=== PATIENT | female | born 1955 | race Caucasian/White ===

== ENCOUNTER 2017-12-13 07:30 | Day surgery (SDC) | payer BC ==
[2017-12-11 14:24] VITALS: BMI 28.1
[~2017-12-13 07:30] MED LIST: LIDOCAINE 1% 20 ML VIAL (10MG/ML) FOR IV START INTRADERMA PRN
[2017-12-13 07:53] VITALS: RESP 16; TEMP 98
[2017-12-13] MEDS: LACTATED RINGERS 1,000 ML IV SCH ×2 (07:57→09:37)
[2017-12-13] MEDS ORDERED: LIDOCAINE 1% 20 ML VIAL (10MG/ML) FOR IV START INTRADERMA ONE (07:58)
[2017-12-13] MEDS ORDERED: PROPOFOL 10 MG/ML 20 ML VIAL IV ONE (09:39)
--- NOTE | 2017-12-13 10:04 | P.PCN ---
Date of Procedure: 12/13/17 Procedure(s) Performed: Procedure: Esophagogastroduodenoscopy and biopsy. Preoperative diagnosis: Chronic reflux symptoms and globus sensation in her throat despite medical therapy. Postoperative diagnosis: 1. Small sliding hiatal hernia with no obvious esophagitis or complicated reflux disease. 2. Mild antral gastritis. 3. Multiple biopsies obtained from the duodenum, antrum and esophagus. Preparation and sedation: Was provided by anesthesia. Brief clinical history: The patient is a 61-year-old female who I scheduled for this evaluation for the above reasons. The purpose is to assess her esophagitis , rule out complicated reflux disease or other pathology. Procedure: With the patient on her left lateral decubitus position and after informed consent and adequate sedation, I passed the Olympus-GIF 160 video upper endoscope through the cricopharyngeus down the esophagus. GE junction was around 37 cm from the incisors and there was a small sliding hiatal hernia but no obvious esophagitis or complicated reflux disease. The endoscope was then passed into the stomach which was insufflated with air and inspected in detail including the retroflex view in the cardia. There was some mottling and erythema in the antrum but no ulcers or erosions. Pyloric channel, duodenal bulb, post bulbar area and descending duodenum appeared within normal limits. I obtained biopsies from the duodenum, antrum and esophagus then the endoscope was withdrawn. The patient tolerated the procedure well. Plan: The patient was reassured. Will await biopsy results. I will make further plans based on her course and biopsy results. I will see her in the office in around 4-6 weeks.
[2017-12-13 10:19] VITALS: BP 127/90; PULSE 60
== END 2017-12-13 10:39 | disposition home or self-care (01) ==
LOC: ORWHC2ENDO 07:30
DX: K21.9 Gastro-esophageal reflux disease without esophagitis (principal); K29.50 Unspecified chronic gastritis without bleeding; K44.9 Diaphragmatic hernia without obstruction or gangrene; Z79.82 Long term (current) use of aspirin
CPT/HCPCS: 88305; 43239; J2704

== ENCOUNTER → 2017-12-13 | Outpatient (CLI) | payer BC ==
--- NOTE | 2017-12-13 07:45 | US ---
EXAMINATION TYPE: US abdomen complete DATE OF EXAM: 12/13/2017 COMPARISON: NONE CLINICAL HISTORY: Epigastric Pain, R10.13. EXAM MEASUREMENTS: Liver Length: 12.7 cm Gallbladder Wall: 0.1 cm CBD: 0.3 cm Spleen: 8.8 cm Right Kidney: 9.9x3.9x4.5 cm Left Kidney: 9.3x4.1x4.3 cm Pancreas: Tail obscured by overlying bowel gas Liver: Diffusely heterogenous and coarsened echotexture. This limits evaluation for hepatic masses. Gallbladder: No cholelithiasis. No biliary sludge. Evidence for sonographic Willingham's sign: No CBD: wnl Spleen: wnl Right Kidney: wnl Left Kidney: wnl Upper IVC: wnl Abd Aorta: wnl The intrahepatic portion of the IVC and proximal abdominal aorta are within normal limits. There is no evidence of cholelithiasis. Common bile duct is unremarkable. The visualized portions of the huff creas are homogenous. The spleen is unremarkable. Kidneys are symmetric and free of hydronephrosis. No renal lesions are seen. IMPRESSION: 1. Diffusely heterogenous hepatic echotexture that can be seen in mild hepatic steatosis or hepatocel lular disease. Correlate with serum laboratory values. 2. No sonographic evidence of cholelithiasis or acute cholecystitis.
== END | disposition home or self-care (01) ==
LOC: RADUSWWP 06:53
DX: R93.2 Abnormal findings on diagnostic imaging of liver and biliary tract (principal); R10.13 Epigastric pain
CPT/HCPCS: 76700

== ENCOUNTER → 2021-04-05 | Outpatient (CLI) | payer BC ==
[2021-04-05 09:50] VITALS: BP 116/76; PULSE 86; RESP 18; TEMP 98.2
--- NOTE | 2021-04-05 11:28 | P.HPOB ---
History of Present Illness H&P Date: 04/05/21 Chief Complaint: The patient is here for her routine gynecologic exam. This is a 65-year-old with an LMP of 2007. The patient is here to establish with this office. It has been about 15 years since her last pelvic exam. She has been experiencing low abdominal and pelvic discomfort during the past 4 days. She states this started as a tightness that felt like a muscle cramp with pressure. This was most in the middle part of the abdomen and pelvis, but now seems to be more on the right side. During the past 4 days she has also been experiencing some diarrhea especially after eating. She denies problems with her appetite and also denies any nausea or vomiting. She denies fever. Today her low abdomen feels slightly tender. She has not been on antibiotics recently. She is not sexually active. She denies any postmenopausal bleeding. Review of Systems Weight has been stable. She denies respiratory, cardiac and G.I. problems. She denies maltreatment or problems with falling. : Occasional urinary leakage. Past Medical History Additional Past Medical History / Comment(s): Fuch's eye disease. 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 Years ago she was told she had uterine f ibroids. History of Any Multi-Drug Resistant Organisms: None Reported Additional Past Surgical History / Comment(s): Colonoscopy age 49, Cataract surg karin. Past Anesthesia/Blood Transfusion Reactions: Previous Problems w/ Anesthesia Additional Past Anesthesia/Blood Transfusion Reaction / Comment(s): Takes longer to wake up. Past Psychological History: No Psychological Hx Reported Smoking Status: Never smoker Past Alcohol Use History: Rare (2 per year) Past Drug Use History: None Reported Additional History: She is a since around 2009. She is not seeing anybody and is not sexually active. 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 - Past Family History Mother Family Medical History: Cancer Additional Family Medical History / Comment(s): Mass in her abdomen, unknown primary. Father Family Medical History: No Reported History Medications and Allergies Home Medications Medication Instructions Recorded Confirmed Type Aspirin [Adult Low Dose Aspirin EC] 81 mg PO DAILY 12/13/17 04/05/21 History Multivitamin [Multivitamins Adult 1 each PO DAILY 04/05/21 04/05/21 History Gummies] Sodium Chloride 5% Ophth Soln 1 drops BOTH EYES DAILY 04/05/21 04/05/21 History [Larissa 128] Allergies Allergy/AdvReac Type Severity Reaction Status Date / Time No Known Allergies Allergy Verified 04/05/21 09:43 Exam Vital Signs Temp Pulse Resp BP Pulse Ox 04/05/21 09:44 98.2 F 86 18 116/76 99 Intake and Output 04/04/21 04/05/21 04/05/21 22:59 06:59 14:59 Other: Weight 74.389 kg Height 5 feet 4 inches, weight 164 pounds, BMI 28.2. This is a well-developed well-nourished white female who is alert and oriented times 3 in no acute distress. HEENT: Within normal limits. NECK: Supple without mass or thyromegaly. CHEST AND LUNGS: Clear to auscultation. HEART: Regular rate and rhythm. BREASTS: Are without mass or discharge. AXILLARY EXAM: Negative for adenopathy. BACK: Negative for CVA tenderness. ABDOMEN: Soft, with a palpable mass in the lower abdomen to the right of the midline. This is mildly tender and approaches the midway point between the mons pubis and umbilicus. There is also mild left lower quadrant tenderness. There is no rebound tenderness. There is no upper abdominal tenderness or masses. PELVIC EXAM: Normal external genitalia with mild atrophy. Cervix and vagina appear normal with mild atrophy. There is no unusual discharge. There is no evidence of prolapse. There is a palpable 2.5 cm mass posterior to the cervix which is firm and seems to be part of the uterus. This mass is mildly tender. The uterus feels to be approximately 14 weeks' size and slightly to the right of the midline and firm. The abdominal mass palpated seems to be consistent with an enlarged uterus. There are no other palpable masses, but there is mild tenderness in the area of the uterus and in the left adnexal region. RECTAL EXAM: Rectovaginal exam negative for rectal mass or tenderness and is negative for occult blood. The rectovaginal exam does confirm the mass palpable with vaginal exam. EXTREMITIES: Nontender. IMPRESSION: 1. 65-year-old menopausal female with a 4 day history of low abdominal and pelvic discomfort with a palpable low abdominal and pelvic mass. Differential diagnosis will include enlarged fibroid uterus, ovarian mass, and non- gynecologic discomfort and non-gynecologic mass. 2. Recent diarrhea which could make a GI cause for her discomfort more likely. PLAN: 1. Pap smear was performed. We will continue doing Pap smears since he she has not had adequate screening during the past 15 years. 2. Self breast awareness was discussed with the patient. 3. I have recommended screening mammogram since it has been about 15 years since her last one. The order slip was given to the patient for this. 4. Pelvic 5. Ultrasound was recommended. The order slip was given to the patient for this and this has been scheduled for 04/12/2021. 6. We will determine the appropriate follow-up and workup after the pelvic ultrasound is performed. 7. She has completed a Covid vaccination series. She has not gotten flu shots for several years. I have recommended that she consider doing flu shots in the fall. 8. I have recommended that she look into a colonoscopy since it has been more than 10 years since her last one. 9. I have recommended that she try to establish with a primary care physician since she does not have one at this time. 10. She was advised to return in one year for her annual well woman exam and as needed. We will also determine the follow-up following the pelvic ultrasound. If her pain becomes severe or if she is having problems, she was instructed to go into the emergency room.
== END | disposition home or self-care (01) ==
LOC: WWCWWP 09:36
PROVIDERS: ATTEND Obstetrics & Gynecology
DX: Z53.9 Procedure and treatment not carried out, unspecified reason (principal)

== ENCOUNTER → 2021-04-12 | Outpatient (CLI) | payer BC ==
--- NOTE | 2021-04-12 10:00 | US ---
EXAMINATION TYPE: US pelvis complete transvag DATE OF EXAM: 04/12/2021 COMPARISON: NONE CLINICAL HISTORY: R10 Abdominal pain, pelvic pain. RLQ pain TECHNIQUE: Transvaginal (TV) and Transabdominal (TA) . Transabdominal sonographic images of the pel vis were acquired. Transvaginal sonographic images were medically necessary to better assess the fol lowing anatomy: uterus. Date of LMP: postmenopausal, no HRT. EXAM MEASUREMENTS: Uterus: 9.9 x 3.3 x 4.0 cm Endometrial Stripe: 0.8 cm Right Ovary: 2.7 x 2.0 x 2.3 cm Left Ovary: 4.9 x 2.9 x 3.6 cm 1. Uterus: Anteverted appears normal by transvaginal imaging. 2. Endometrium: thickened for postmenopausal not on HRT. 3. Right Ovary: appears wnl, only seen transabdominally. 4. Left Ovary: appears wnl, only seen transabdominally. 5. Bilateral Adnexa: Large adnexal mass adjacent to uterus, which could be attached to uterus measur es 10.1 x 5.5 cm. There is some free fluid seen. 6. Posterior cul-de-sac: posterior mass seen versus pedunculated fiboid. Transabdominally there appears to be enlarged bulky uterus. Transvaginally, it appears there is kevin l appearing uterus with large mass versus fibroid area posteriorly and extending into right adnexa. IMPRESSION: 1. There is a large adnexal mass measuring 10.1 cm difficult to determine if this is related to the u terus or ovary. Recommend CT of the abdomen and pelvis. Additionally, recommend correlation with CA-1 25. 2. Endometrial stripe measures 8 mm and is thickened correlate for endometrial pathology including hy perplasia. Endometrial carcinoma not excluded.
--- NOTE | 2021-04-13 12:38 | P.PN ---
Progress Note - Text Progress Note Date: 04/13/21 OUTPATIENT FOLLOW-UP NOTE TEST(S)/RESULTS: Pelvic ultrasound done on 04/12/[address] Hinds, the radiologist, with me. The uterus has a lobulated appearance which she feels may reflect leiomyomatous change. There is a adnexal mass also that can not be positively identified and may represent a growth from the uterus or ovary. Dr. Hinds is recommending an MRI to further evaluate the pelvic mass and uterus. Endometrial thickness is 8 mm by ultrasound. METHOD OF NOTIFICATION: The patient was notified by phone. PATIENT COMMENTS: DIAGNOSIS: Probable multi-fibroid uterus with a large pelvic mass that is difficult to identify and difficult to determine if it is related to the uterus or ovary. Thickened endometrium. DISCUSSION: The pelvic ultrasound also showed a segment of the endometrium with a thickness of 8 mm. The entire endometrium is not clearly visualized because of distortion possibly secondary to uterine fibroids. PLAN: MRI with and without contrast. CA-125 will be drawn. The patient has been scheduled for an endometrial biopsy on 04/14/2021 at 3 PM. If the CA-125 is normal and MRI indicates that the pelvic mass is most likely a pedunculated fibroid, we can consider referral for surgery to a local health companion. If CA- 125 is elevated or there is any indication that the mass is ovarian, I would likely refer her to a gynecologic oncologist.
== END | disposition home or self-care (01) ==
LOC: RADUSWWP 08:48
PROVIDERS: ATTEND Obstetrics & Gynecology
DX: N85.9 Noninflammatory disorder of uterus, unspecified (principal); R10.31 Right lower quadrant pain
CPT/HCPCS: 76830; 76856

== ENCOUNTER → 2021-04-14 | Day surgery (SDC) | payer BC ==
[2021-04-14 15:05] VITALS: BP 114/73; PULSE 71; RESP 18; TEMP 98.3
--- NOTE | 2021-04-14 16:23 | P.PCN ---
Date of Procedure: 04/14/21 Preoperative Diagnosis: thickened endometrium by U/S Postoperative Diagnosis: same + Cervical lesion Procedure(s) Performed: endometrial biopsy (limited). Biopsy of cervical lesion. Anesthesia: none Surgeon: Derik Soto Estimated Blood Loss (ml): 1 Pathology: other (endometrial biopsy sample (limited) and cervical lesion biopsy) Condition: stable Disposition: same day Indications for Procedure: This was a 65-year-old menopausal female who was experiencing low abdominal and pelvic discomfort and presented for a gynecologic exam. On exam she was found to have a pelvic mass and possible enlarged uterus. Pelvic ultrasound does reveal a fibroid uterus with a mass posterior to the uterus measuring 10.1 x 5.5 cm. There is uncertainty as to whether this represents a pedunculated fibroid, mass from one of the ovaries or something else. The endometrium was not fully visualized by ultrasound, but there was a segment that measured 8 mm which is considered mildly thickened. For this reason endometrial biopsy was planned. Operative Findings: There is a pelvic mass on bimanual examination measuring approximately 10 cm, which may represent an enlarged uterus or other type of mass. The cervix had an endocervical lesion measuring approximately 8 x 9 mm which was slightly darker than the cervical epithelium. This was from about the 9:00 to 12 o'clock position of the endocervix. The measurement to which the endometrial biopsy instrument could go to was 4 cm. Description of Procedure: We have discussed the findings on examination as well as the pelvic ultrasound findings. She understands why I was recommending endometrial biopsy. We have discussed the procedure including possible risks and complications. These risks include possible bleeding, infection, uterine perforation, and damage to surrounding structures. All of her questions were answered. The patient was placed in the lithotomy position and the speculum was inserted into the vagina. The cervix and vagina were prepped with Betadine solution. An Allis clamp was used to grasp the anterior lip of the cervix. The cervical lesion was noted from about the 9:00 to the 12 o'clock position of the endocervix was noted. This was slightly darker than the ectocervix. An endometrial biopsy instrument was inserted but couldn't could not go beyond 4 cm with the normal amount of force. Cervical manipulation was attempted to get the endometrial biopsy instrument further into the endometrial canal, but there was definite resistance at 4 cm and this could not go beyond this point with the normal amount of force. Negative pressure was applied and a [id number] rotating motion was used and a scant amount of tissue was obtained along with some clear mucousy type material. The endometrial biopsy was discontinued following this. This was felt to be limited based on the depth of penetration with the endometrial biopsy instrument. With the patient's verbal consent I did do a biopsy of the cervical lesion just within the endocervix. Cervical biopsy instrument was used to obtain the biopsy. Monsel solution was then applied for hemostasis. The estimated blood loss was 1 mL. The patient tolerated the procedure well. Post procedure instructions were given to the patient. The patient is to avoid sexual activity during the upcoming week and does not do strenuous exercise such as running during that time as well. The patient was instructed to call if she has unusual pain, fever, heavy bleeding or problems. Discussion: We have discussed how I am probably going to recommend some type of surgery following her workup because of the abnormal pelvic mass. If the mass seems to be a pedunculated fibroid with additional imaging studies, and if these biopsies are benign and the CA-125 test is normal, she will be referred for removal of the pelvic mass and possible hysterectomy. We will also consider referral to a gynecologic oncologist especially if the biopsies show some type of neoplasm, if the MRI seems to indicate that the mass is ovarian in nature, or if the CA-125 test is elevated. Currently her MRI is scheduled for later in April. We will see if we can move this up sooner.
--- NOTE | 2021-04-19 09:06 | P.PN ---
Progress Note - Text Progress Note Date: 04/19/21 OUTPATIENT FOLLOW-UP NOTE TEST(S)/RESULTS: Test results from 04/14/2021 include pathology report showing the cervical biopsy was an inflamed polyp. Also be attempted endometrial biopsy was very limited with scant possible atrophic endometrial glands. CA-125 test was greater than 12,000 which is really elevated. METHOD OF NOTIFICATION: The patient was notified by phone. PATIENT COMMENTS: When I have recommended referral to a gynecologic oncologist, she is requesting referral to a [facility] physician. DIAGNOSIS: 10.1 cm pelvic mass with elevated CA-125. DISCUSSION: We had her scheduled for an MRI in April. Because of the greatly elevated CA-125 test, we will proceed with referral to a gynecologic oncologist. PLAN: She will be referred to Dr. Gordon Jacobson, a gynecologic oncologist at [facility].
== END ==
LOC: WWCWWP 14:52
PROVIDERS: ATTEND Obstetrics & Gynecology
DX: N84.1 Polyp of cervix uteri (principal); D25.9 Leiomyoma of uterus, unspecified; R93.89 Abnormal findings on diagnostic imaging of other specified body structures; Z78.0 Asymptomatic menopausal state
CPT/HCPCS: 36415; 86304; 88305